=== PATIENT | male | born 1975 | race Caucasian/White ===

== ENCOUNTER 2016-08-15 21:36 | Observation (INO) | payer SELFPAY ==
[2016-08-15 22:41] LABS: Urine Bilirubin 3 mg/dl (NEGATIVE); Urine Ketone 5 mg/dL (NEGATIVE); Urine Protein 30 mg/dL (NEGATIVE); Urine Specific Gravity 1.025 SP.GR. (1.005-1.030); Urine Urobilinogen Normal (NORMAL)
[2016-08-15 22:49] LABS: Hematocrit 38.3 % (42.0-52.0); Hemoglobin 13.9 gm/dL (13.5-18.0); Mean Cell Volume 90.3 fl (78-100); Mean Corpuscular Hemoglobin 32.8 pg (27-31); Mean Corpuscular Hgb Conc 36.3 g/dl (32-36); Mean Platelet Volume 10.2 fl (6.0-9.5); Neutrophil # 3.3 K/mm3 (1.3-6.0); Neutrophil % 47.6 % (42-75.0); Platelet Count 77 K/mm3 (150-450); Red Blood Count 4.24 M/mm3 (4.7-6.0); Red Cell Distribution Width 17.7 % (11.5-14.0); White Blood Count 6.9 K/mm3 (4.0-10.5)
--- NOTE | 2016-08-15 22:49 | ERNOTE ---
Medical Problem HPI - General Chief Complaint: General Assessment Time Seen by Provider: 08/15/16 22:23 Source: patient, family Exam Limitations: no limitations - Immun/Allergies/Home Medications Allergies/Adverse Reactions: Allergies acetaminophen Adverse Reaction (Intermediate, Verified 01/22/14 14:41) Other aspirin Adverse Reaction (Verified 08/15/16 22:03) Home Medications: HOME MEDICATIONS Carvedilol [Coreg] 0.5 tab PO BID 08/15/16 [Last Taken Unknown] Escitalopram Oxalate [Lexapro] 10 mg PO DAILY 08/15/16 [Last Taken Unknown] Famotidine 20 mg PO DAILY 08/15/16 [Last Taken Unknown] Folic Acid 1 mg PO DAILY 08/15/16 [Last Taken Unknown] Furosemide [Lasix] 20 mg PO DAILY 08/15/16 [Last Taken Unknown] Lactulose [Kristalose] 20 gm PO QID 08/15/16 [Last Taken Unknown] Magnesium Oxide [Magnesium] 400 mg PO BID 08/15/16 [Last Taken Unknown] Multivitamin [One Daily Multivitamin] 1 each PO DAILY 08/15/16 [Last Taken Unknown] Omeprazole 40 mg PO DAILY 08/15/16 [Last Taken Unknown] Pantoprazole Sodium [Protonix] 40 mg PO QAM 08/15/16 [Last Taken Unknown] Potassium Chloride [Klor-Con M10] 10 meq PO HS 08/15/16 [Last Taken Unknown] Propranolol HCl 1 tab PO DAILY 08/15/16 [Last Taken Unknown] QUEtiapine FUMARATE [Seroquel Xr] 600 mg PO HS 08/15/16 [Last Taken Unknown] Rifaximin [Xifaxan] 550 mg PO BID 08/15/16 [Last Taken Unknown] Simethicone [Gas Relief] 80 mg PO PRN PRN 08/15/16 [Last Taken Unknown] Spironolactone [Aldactone] 50 mg PO DAILY 08/15/16 [Last Taken Unknown] - History of Present History Narrative: Patient is here so "you can re-diagnose me". Patient is obviously intoxicated and changes the reason for his visit multiple times. He has a history of Hep C, cirrhosis, and multiple psychiatric diagnosis including schizophrenia. About a month ago he moved here from [place] and is staying with his brother. He is taking his own medications but might be out of some of them. He states that he is taking his lactulose, having multiple loose yellow BM daily, had two beer earlier today. He also smokes THC, last a few days ago (?), denies any other drugs, complaints of a decreased appetite Review of Systems - Review of Systems Constitutional: Present: malaise. Absent: recent illness, fever ENT: Absent: sore throat Respiratory: Absent: shortness of breath, cough Cardiology: Absent: chest pain Gastrointestinal/Abdominal: Present: nausea - maybe, diarrhea - is taking lactulose. Absent: vomiting Genitourinary: Present: no symptoms reported Skin: Absent: rash Neurological: Absent: headache - Patient's Past Medical History Patient History - Medical: Alcohol Abuse, Liver Disease - hep C, cirrhosis, Other - schozophrenia Patient History - Cardiac/Respiratory: Hypertension Patient History - Cancer: No Hx of Cancer - Family History Father Family History - Medical: - Social History Living Situations: other Psych History: Hx of Schizophrenia Smoking Status: Current every day smoker Alcohol Use: other Drug Use: marijuana Physical Exam - Physical Exam General Appearance: Present: wd/wn, alert, no apparent distress, other - obviously intoxicated Eye Exam: PERRL: bilateral, Scleral icterus: bilateral Ears, Nose, Throat: Present: normal pharynx Respiratory: Present: no respiratory distress, lungs clear, decreased breath sounds Cardiovascular/Chest: Present: regular rate, rhythm, no murmur Gastrointestinal/Abdominal: Present: normal bowel sounds, nondistended, soft, tenderness - mild RUQ Neurological Exam: Present: alert, normal mood/affect, no motor/sensory deficits , other - orientented to person and place, not to situation (intoxicated) Skin Exam: Present: normal color, warm/dry ED Progress - Results and Orders Patient's Lab Results:: I have reviewed the patient's lab results. - Vital Signs Patient's Vital Signs:: I have reviewed the patient's vital signs. Vital Signs: Vital Signs 08/15/16 21:57 Temperature 36.9 C Pulse Rate 85 Respiratory 20 Rate Blood Pressure 123/79 O2 Sat by Pulse 98 Oximetry - Progress/Reassessment Chief Complaint: General Assessment Progress Note-Subjective: 08/15/16 23:37 discussed with Adilene Bhardwaj, will discuss staffing with floating [employer] supervisor 08/16/16 00:10 after discussion with pavan Solorzano to admit patient, give rocephin for UTI Departure - Departure Clinical Impression: Encephalopathy acute Cirrhosis of liver Qualifiers: Hepatic cirrhosis type: unspecified hepatic cirrhosis Ascites presence: without ascites Qualified Code(s): K74.60 - Unspecified cirrhosis of liver Liver failure Qualifiers: Liver failure chronicity: unspecified chronicity Hepatic coma status: without hepatic coma Qualified Code(s): K72.90 - Hepatic failure, unspecified without coma UTI (urinary tract infection) Qualifiers: Urinary tract infection type: acute cystitis Hematuria presence: with hematuria Qualified Code(s): N30.01 - Acute cystitis with hematuria Disposition: [facility] Condition: Fair
[2016-08-15 22:53] LABS: Cocaine Ur Negative (NEGATIVE); Urine Barbiturate Negative (NEGATIVE); Urine Benzodiazepines Negative (NEGATIVE); Urine Opiates Negative (NEGATIVE); Urine PCP Negative (NEGATIVE)
[2016-08-15 22:58] LABS: Urine THC Positive (NEGATIVE)
[2016-08-15 23:01] LABS: Urine Appearance Clear; Urine Bacteria 1+; Urine Blood 5 /ul (NEGATIVE); Urine Color Amber; Urine Nitrite Positive (NEGATIVE)
[2016-08-15 23:02] LABS: Urine Mucus Many - 3+
[2016-08-15 23:09] LABS: Albumin * 3.1 gm/dl (3.4-5.0); Anion Gap 10.7 mmol/L (6.8-13.8); BUN/Creatinine Ratio 8.6 (9.0-21.6); Bilirubin, Total 6.9 mg/dL (0.0-1.1); Ca. Corrected For Albumin 9.1 mg/dL (8.4-10.2); Calcium * 8.7 mg/dL (7.9-10.9); Carbon Dioxide 27.2 mmol/L (24-32.6); Potassium 2.9 mmol/L (3.4-4.6); Total Protein 7.2 gm/dL (6.2-8.2)
[2016-08-16] MEDS ORDERED: LORazepam 2 MG/ML DISP.SYRIN IV ONE (00:45)
[2016-08-16] MEDS ORDERED: LORazepam 2 MG/ML DISP.SYRIN IV PRN ×2 (00:46)
[2016-08-16] MEDS ORDERED: POTASSIUM CHLORIDE 40 MEQ/15 ML BTL PO ONE (01:04)
[2016-08-16] MEDS: LACTULOSE 10 G/15 ML BTL PO SCH ×5 (01:29→20:26)
[2016-08-16] MEDS: MULTIVIT INFUSN,ADULT 4,VIT K 10 ML, THIAMINE HCL 100 MG in NORMAL SALINE 1,000 ML IV SCH ×2 (01:41→10:51)
[2016-08-16] MEDS: POTASSIUM CHLORIDE 100 ML IV SCH ×3 (01:48→03:49)
[2016-08-16 01:59] LABS: Magnesium 1.9 mg/dL (1.2-2.8); Phosphorus 3.9 mg/dL (2.2-4.2)
--- NOTE | 2016-08-16 04:27 | HP ---
Chief Complaint - Chief Complaint Date of Service: 08/16/16 Time of Service: 04:27 Chief Complaint: encephalopathy, acute intoxication, cirrhosis of liver History of Present Illness: Ron is a 41 year old male patient (no pcp) with a PMH of liver failure, liver cirrhosis, HTN, etoh abuse, schizophrenia and drug abuse that presented to ER with acute intoxication. Patient is currently sedated and am unable to obtain a history from patient. No family present. History obtained from ER records. Patient recently moved back from [place] and staying with brother. Hx liver failure/liver cirrhosis - on lactulose and rifaximin outpatient but ER records indicate it is unclear if he has been taking these consistently. UDS + amphetamine and THC. etoh level 185. K+ 2.9, ammonia level 73. Urine suspicious for UTI. I spoke with ERP who during her observation denied any suicidal ideation. Patient to be admitted for encephalopathy, acute intoxication and liver failure / liver cirrhosis. - Patient's Past Medical History Patient History - Medical: Alcohol Abuse, Liver Disease - hep C, cirrhosis, liver failure, Other - schizophrenia Patient History - Cardiac/Respiratory: Hypertension Patient History - Cancer: No Hx of Cancer Patient History - Surgical Procedures: No surgical history - Family History Father Family History - Medical: , No pertinent hx Mother Family History - Medical: No pertinent hx - Social History Living Situations: other Psych History: Psychiatric Hx, Hx of Schizophrenia Smoking Status: Current every day smoker Have you smoked in the past 12 months: Yes Do you dip or chew tobacco: No Patient requests Smoking Cessation Consult: Yes Initiate information on Smoking Cessation: Yes Alcohol Use: heavy Drug Use: marijuana, meth Review Of Systems (GEN) - Review of Systems Generalized/Overall Review: Present: Fatigue - unable to obtain ROS due to patient's condition. Allergies/Adverse Reactions: Allergies Allergy/AdvReac Type Severity Reaction Status Date / Time acetaminophen AdvReac Intermediate Other Verified 01/22/14 14:41 aspirin AdvReac Verified 08/15/16 22:03 Home Medications: HOME MEDICATIONS Carvedilol [Coreg] 0.5 tab PO BID 08/15/16 [Last Taken Unknown] Escitalopram Oxalate [Lexapro] 10 mg PO DAILY 08/15/16 [Last Taken Unknown] Famotidine 20 mg PO DAILY 08/15/16 [Last Taken Unknown] Folic Acid 1 mg PO DAILY 08/15/16 [Last Taken Unknown] Furosemide [Lasix] 20 mg PO DAILY 08/15/16 [Last Taken Unknown] Lactulose [Kristalose] 20 gm PO QID 08/15/16 [Last Taken Unknown] Magnesium Oxide [Magnesium] 400 mg PO BID 08/15/16 [Last Taken Unknown] Multivitamin [One Daily Multivitamin] 1 each PO DAILY 08/15/16 [Last Taken Unknown] Omeprazole 40 mg PO DAILY 08/15/16 [Last Taken Unknown] Pantoprazole Sodium [Protonix] 40 mg PO QAM 08/15/16 [Last Taken Unknown] Potassium Chloride [Klor-Con M10] 10 meq PO HS 08/15/16 [Last Taken Unknown] Rifaximin [Xifaxan] 550 mg PO BID 08/15/16 [Last Taken Unknown] Simethicone [Gas Relief] 80 mg PO PRN PRN 08/15/16 [Last Taken Unknown] Spironolactone [Aldactone] 50 mg PO DAILY 08/15/16 [Last Taken Unknown] QUEtiapine FUMARATE [Seroquel] 200 mg PO HS 08/16/16 [Last Taken Unknown] oxyCODONE HCL [Oxycodone] 5 mg PO Q6H PRN 08/16/16 [Last Taken Unknown] Exam - Exam Vital Signs: Vital Signs - Last Taken Temp 36.5 C 08/16/16 01:02 Pulse 74 08/16/16 01:02 Resp 18 08/16/16 01:02 BP 124/77 08/16/16 01:02 Pulse Ox 94 08/16/16 01:02 Constitutional: Present: No distress, Lethargic - sedated, responds to pain and sound, Looks Older than stated age Eye Exam: bilateral eye: normal inspection, PERRL Neck: Present: supple Breasts: Present: Exam deferred Respiratory: Present: lungs clear, normal breath sounds Cardiovascular/Chest: Present: normal peripheral pulses, regular rate, rhythm Peripheral Pulses: dorsalis-pedis (R): 2+, dorsalis-pedis (L): 2+, radial (R): 2 +, radial (L): 2+ Abdomen: Present: soft, nontender, nondistended /Rectal: Present: Exam deferred Extremity: Present: normal range of motion, non-tender, no pedal edema Skin Exam: Present: normal color, warm/dry, no cyanosis Diagnostic Studies: Laboratory Results Laboratory Tests 08/15/16 22:18 WBC 6.9 Hgb 13.9 Hct 38.3 Plt Count 77 Neutrophils % 47.6 Sodium 142 Potassium 2.9 BUN 6 Creatinine 0.70 Total Bilirubin 6.9 AST 89 ALT 47 Ammonia 73.0 Urine Color Gloria Urine pH 6.0 Ur Specific [place] 1.025 Urine Blood 5 H Urine Nitrate Positive H Urine Bilirubin 3 H Urine RBC 5-10 H Urine WBC 5-10 H Ur Epithelial Cells 5-10 H Urine Bacteria 1+ H Hyaline Casts 5-10 H Urine Amphetamine Positive Urine Marijuana (THC) Positive Ethyl Alcohol 185.0 Assessment/Plan - Narrative Narrative: Encephalopathy - likely due to hepatic encephalopathy - bili 6.9, ammonia 73.0 - aggrevating factors include drug and etoh abuse. - lactulose 30 mg PO/RC QID - seizure precautions - recheck labs Acute drug / etoh intox - banana bag iv at 125 ml / hr for iv hydration - etoh withdrawl protocol entered - seizure precautions - etoh level on admission was 185 - UDS +amphedamines and THC UTI, suspected - not the best sample - has 5-10 epithelial cells - recheck UA with minicath - then start Rocephin 1 gm IV - Day #1 - await urine culture results Hypokalemia - supplement K+ - recheck labs - likely due to poor oral intake and/or etoh abuse Discharge planning issues - currently living with brother - unsure if he can return here - consult case management. Schizophrenia - this is just one of the known psychiatric illness pt has. - patient was on a high dose of seroquel I did not feel comfortable restarting, especially in light of his acute intoxication and now sedation, in addition to his liver failure. - ? psychiatric consult ? HTN - vital sign q 4 hours Code status: Full code VTE: SCDs while in bed. GI proph: protonix po - Assessment/Plan (1) Encephalopathy acute Problem: Acute (2) Acute drug intoxication Problem: Acute Qualifiers: Complication of substance-induced condition: with delirium Qualified Code(s ): F19.921 - Other psychoactive substance use, unspecified with intoxication with delirium (3) Acute alcoholic intoxication Problem: Acute Qualifiers: Complication of substance-induced condition: with delirium Qualified Code(s ): F10.921 - Alcohol use, unspecified with intoxication delirium (4) UTI (urinary tract infection) Problem: Suspected Qualifiers: Urinary tract infection type: acute cystitis Hematuria presence: with hematuria Qualified Code(s): N30.01 - Acute cystitis with hematuria (5) Hepatitis C Problem: Chronic Qualifiers: Viral hepatitis chronicity: chronic (6) Schizophrenia Problem: Chronic Qualifiers: Schizophrenia type: unspecified Qualified Code(s): F20.9 - Schizophrenia, unspecified (7) HTN (hypertension) Problem: Chronic Qualifiers: Hypertension type: essential hypertension Qualified Code(s): I10 - Essential (primary) hypertension (8) Liver failure Problem: Chronic Qualifiers: Liver failure chronicity: unspecified chronicity Hepatic coma status: without hepatic coma Qualified Code(s): K72.90 - Hepatic failure, unspecified without coma (9) Cirrhosis of liver Problem: Chronic Qualifiers: Hepatic cirrhosis type: unspecified hepatic cirrhosis Ascites presence: without ascites Qualified Code(s): K74.60 - Unspecified cirrhosis of liver (10) Tobacco abuse Problem: Chronic (11) Hypokalemia Problem: Acute (12) Discharge planning issues Problem: Acute
[2016-08-16] MEDS ORDERED: POTASSIUM CHLORIDE 100 ML IV ONE (04:45)
[2016-08-16] MEDS: PANTOPRAZOLE SODIUM 40 MG TABLET.EC PO SCH (07:04)
[2016-08-16] MEDS ORDERED: FOLIC ACID 1 MG TABLET PO SCH (09:00)
[2016-08-16] MEDS ORDERED: POTASSIUM CHLORIDE 40 MEQ/15 ML BTL PO SCH (09:15)
[2016-08-16 09:42] LABS: BUN/Creatinine Ratio 9.1 (9.0-21.6); Calcium * 7.9 mg/dL (7.9-10.9); Carbon Dioxide 23.4 mmol/L (24-32.6); Estimated Creat Clear 195.7; Potassium 3.4 mmol/L (3.4-4.6)
[2016-08-16] MEDS: FOLIC ACID 1 MG TABLET PO SCH (10:04)
[2016-08-16] MEDS: ESCITALOPRAM OXALATE 10 MG TAB PO SCH (10:04)
[2016-08-16] MEDS: MULTIVITAMINS 1 CAP CAPSULE PO SCH (10:04)
[2016-08-16] MEDS: THIAMINE HCL 100 MG TABLET PO SCH (10:04)
[2016-08-16] MEDS: MAGNESIUM OXIDE 400 MG TABLET PO SCH ×2 (10:04→20:25)
[2016-08-16 14:21] LABS: Urine Bilirubin 1 mg/dl (NEGATIVE); Urine Blood Negative /ul (NEGATIVE); Urine Ketone 5 mg/dL (NEGATIVE); Urine Nitrite Negative (NEGATIVE); Urine Protein Negative (NEGATIVE); Urine Specific Gravity 1.025 SP.GR. (1.005-1.030); Urine Urobilinogen Normal (NORMAL)
[2016-08-16 15:18] LABS: Urine Appearance Clear; Urine Bacteria None Seen; Urine Color Amber; Urine RBC 0-5 /hpf (0-5); Urine WBC None Seen /hpf (0-5)
[2016-08-16 15:19] LABS: Urine Mucus Moderate - 2+
[2016-08-16] MEDS ORDERED: POTASSIUM CHLORIDE 10 MEQ TABLET.SA PO SCH (21:00)
[2016-08-17] MEDS: LORazepam 2 MG/ML DISP.SYRIN IV PRN ×2 (00:44→23:05)
[2016-08-17] MEDS: PANTOPRAZOLE SODIUM 40 MG TABLET.EC PO SCH (07:17)
[2016-08-17] MEDS: THIAMINE HCL 100 MG TABLET PO SCH (09:01)
[2016-08-17] MEDS: MULTIVITAMINS 1 CAP CAPSULE PO SCH (09:01)
[2016-08-17] MEDS: FOLIC ACID 1 MG TABLET PO SCH (09:01)
[2016-08-17] MEDS: ESCITALOPRAM OXALATE 10 MG TAB PO SCH (09:01)
[2016-08-17] MEDS: MAGNESIUM OXIDE 400 MG TABLET PO SCH ×2 (09:01→20:33)
[2016-08-17] MEDS: LACTULOSE 10 G/15 ML BTL PO SCH ×4 (09:04→20:32)
--- NOTE | 2016-08-17 22:04 | PN ---
Subjective - Date and Time Seen Date: 08/17/16 Time: 22:04 Subjective Narrative: states he has been under a lot of stress lately. worried about discharge plans. no n/v. feels tired. Objective - Review of Systems Generalized/Overall Review: Reports: Fatigue EENTM: Reports: No Symptoms Reported Respiratory: Reports: No Symptoms Reported Cardiac: Reports: No Symptoms Reported Abdominal: Reports: No Symptoms Reported Genitourinary Symptoms: Reports: No Symptoms Reported Musculoskeletal Complaints: Reports: No Symptoms Reported Neurological: Reports: No Symptoms Reported Skin: Reports: No Symptoms Reported Endocrine: Reports: No Symptoms Reported Misc: All systems neg except as marked - Vitals Vitals: Last Vital Signs Temp 36.8 C 08/17/16 19:55 Pulse 82 08/17/16 19:55 Resp 18 08/17/16 19:55 BP 138/68 08/17/16 19:55 Pulse Ox 96 08/17/16 19:55 - Exam Constitutional: Present: Alert, Cooperative, No distress ENT Exam: Present: hearing grossly normal Neck: Present: full range of motion, supple Respiratory: Present: lungs clear, normal breath sounds Cardiovascular/Chest: Present: normal peripheral pulses, regular rate, rhythm, no JVD Abdomen: Present: soft, nontender, nondistended /Rectal: Present: Exam deferred Extremity: Present: no pedal edema, no calf tenderness Skin Exam: Present: normal color, warm/dry, no cyanosis Neurologic: Present: manager scientific II-XII nml as tested, alert, oriented x 3 Assessment/Plan Plan Narrative: Encephalopathy - likely due to hepatic encephalopathy - bili 6.9, ammonia 73.0 on admit - recheck labs in am. - aggrevating factors include drug and etoh abuse. - lactulose 30 mg PO/RC QID - seizure precautions Acute drug / etoh intox - etoh withdrawl protocol entered - seizure precautions - etoh level on admission was 185 - UDS +amphedamines and THC on admission - appears to have "sobered up" UTI, ruled out - recheck sample not c/w infection Hypokalemia - improved - recheck labs - likely due to poor oral intake and/or etoh abuse Discharge planning issues - currently living with brother - unsure if he can return here - consult case management. HTN - vital sign q 4 hours Code status: Full code VTE: SCDs while in bed. GI proph: protonix po - Problems/Diagnosis (1) Encephalopathy acute Problem: Acute (2) Acute drug intoxication Problem: Acute Qualifiers: Complication of substance-induced condition: with delirium Qualified Code(s ): F19.921 - Other psychoactive substance use, unspecified with intoxication with delirium (3) Acute alcoholic intoxication Problem: Acute Qualifiers: Complication of substance-induced condition: with delirium Qualified Code(s ): F10.921 - Alcohol use, unspecified with intoxication delirium (4) UTI (urinary tract infection) Problem: Suspected Qualifiers: Urinary tract infection type: acute cystitis Hematuria presence: with hematuria Qualified Code(s): N30.01 - Acute cystitis with hematuria (5) Hepatitis C Problem: Chronic Qualifiers: Viral hepatitis chronicity: chronic (6) Schizophrenia Problem: Chronic Qualifiers: Schizophrenia type: unspecified Qualified Code(s): F20.9 - Schizophrenia, unspecified (7) HTN (hypertension) Problem: Chronic Qualifiers: Hypertension type: essential hypertension Qualified Code(s): I10 - Essential (primary) hypertension (8) Liver failure Problem: Chronic Qualifiers: Liver failure chronicity: unspecified chronicity Hepatic coma status: without hepatic coma Qualified Code(s): K72.90 - Hepatic failure, unspecified without coma (9) Cirrhosis of liver Problem: Chronic Qualifiers: Hepatic cirrhosis type: unspecified hepatic cirrhosis Ascites presence: without ascites Qualified Code(s): K74.60 - Unspecified cirrhosis of liver (10) Tobacco abuse Problem: Chronic (11) Hypokalemia Problem: Acute (12) Discharge planning issues Problem: Acute
[2016-08-18] MEDS: PANTOPRAZOLE SODIUM 40 MG TABLET.EC PO SCH (07:34)
[2016-08-18] MEDS: MULTIVITAMINS 1 CAP CAPSULE PO SCH (08:50)
[2016-08-18] MEDS: MAGNESIUM OXIDE 400 MG TABLET PO SCH (08:50)
[2016-08-18] MEDS: THIAMINE HCL 100 MG TABLET PO SCH (08:50)
[2016-08-18] MEDS: ESCITALOPRAM OXALATE 10 MG TAB PO SCH (08:50)
[2016-08-18] MEDS: FOLIC ACID 1 MG TABLET PO SCH (08:50)
[2016-08-18] MEDS: LACTULOSE 10 G/15 ML BTL PO SCH ×2 (08:51→13:28)
--- NOTE | 2016-08-18 11:28 | DS ---
(1) Substance abuse Diagnosis(s): EtOH level 0.185, tobacco abuse, UDS positive for THC and amphetamines. Problem: Acute (2) Cirrhosis of liver Diagnosis(s): due to hepatitis C. Problem: Chronic Qualifiers: Hepatic cirrhosis type: unspecified hepatic cirrhosis Ascites presence: without ascites Qualified Code(s): K74.60 - Unspecified cirrhosis of liver (3) Schizophrenia Problem: Chronic Qualifiers: Schizophrenia type: unspecified Qualified Code(s): F20.9 - Schizophrenia, unspecified (4) Anxiety and depression Diagnosis(s): On escitalopram 10 mg daily. Problem: Chronic (5) HTN (hypertension) Problem: Chronic Qualifiers: Hypertension type: essential hypertension Qualified Code(s): I10 - Essential (primary) hypertension Description of Stay: DATE OF ADMISSION: 08/16/2016. DATE OF DISCHARGE: 08/18/2016. DIAGNOSTICS: NONE. DISCHARGE SUMMARY: Ron Daly is a 41-year-old WM with a H/O cirrhosis of liver due to hep C, schizophrenia, substance abuse[ EtOH, tobacco] who was seen in the ER for acute EtOH intoxication. Level was 0.185 and UDS positive for THC and methamphetamine. K+ 2.9, AST 89, T Delgado 6.9 ammonia 73. The patient was restarted on lactulose and prior medications Patient has been not taking his previous medications for the last few weeks. He recently moved from [place] to stay with his brother. He became more alert. Patient was advised to establish with a [facility][ liver clinic] and continue his medications especially rifaximin, lactulose , escitalopram and carvedilol. He was discharged in a stable condition. Advised to avoid NSAIDs EtOH etc. Procedures Performed: none Discharge Disposition: Home self care Disposition: Home self-care Condition: Undetermined Discharge Activity: Activity as tolerated Discharge Diet: Low salt, Low fat/chol, High Fiber Problem Oriented Discharge Instructions to Patient/Family: Liver Failure, Drug Overdose Additional Patient Instructions (free text): Patient needs to establish with a physician. Follow up with Dr. Smith 1-2 weeks [facility] will call you on Saturday with appt. Needs a appt with [facility] with liver clinic. MVT, folic acid 0.4 mg [ 2 tablets] , magnesium oxide 400 mg PO twice a day, Thiamine 100 mg daily , Simethicone 80 mg 4 times a day after meals [ are OTC medications] and are a lot cheaper if bought in a bottle of 100. Please AVOID ETOH, NSAIDS, recreational drugs, ASPIRIN as they can increase liver damage. Prescriptions (Any new or edited meds): Furosemide [Lasix] 20 mg PO DAILY@1200 #30 tablet Spironolactone [Aldactone] 50 mg PO DAILY@1200 #30 tablet Complete Home Medications List: Complete Home Medication List: Carvedilol [Coreg] 0.5 tab PO BID 08/15/16 Escitalopram Oxalate [Lexapro] 10 mg PO DAILY 08/15/16 Folic Acid 1 mg PO DAILY 08/15/16 Lactulose [Kristalose] 20 gm PO QID 08/15/16 Magnesium Oxide [Magnesium] 400 mg PO BID 08/15/16 Multivitamin [One Daily Multivitamin] 1 each PO DAILY 08/15/16 Omeprazole 40 mg PO DAILY 08/15/16 Rifaximin [Xifaxan] 550 mg PO BID 08/15/16 Simethicone [Gas Relief] 80 mg PO PRN PRN 08/15/16 QUEtiapine FUMARATE [Seroquel] 200 mg PO HS 08/16/16 oxyCODONE HCL [Oxycodone] 5 mg PO Q6H PRN 08/16/16 Furosemide [Lasix] 20 mg PO DAILY@1200 #30 tablet 08/18/16 Multivitamins [Multivitamin Lamin] 1 cap PO DAILY capsule 08/18/16 Spironolactone [Aldactone] 50 mg PO DAILY@1200 #30 tablet 08/18/16 Thiamine HCl [Vitamin B-1] 100 mg PO DAILY tablet 08/18/16
[2016-08-18 14:21] VITALS: BP 134/76
== END 2016-08-18 16:33 | disposition home or self-care (01) ==
LOC: ER 21:36 → MS 23:52 → UNDOADMIN 23:52 → INTOOBSV 08-16 00:01 → MS 08-16 00:01
PROVIDERS: ADMIT Nurse Practitioner Critical Care Medicine; ATTEND Internal Medicine
DX: K71.7 Toxic liver disease with fibrosis and cirrhosis of liver (principal); B18.2 Chronic viral hepatitis C; I10 Essential (primary) hypertension; F10.129 Alcohol abuse with intoxication, unspecified; F15.10 Other stimulant abuse, uncomplicated; F20.9 Schizophrenia, unspecified; F41.8 Other specified anxiety disorders; E87.6 Hypokalemia; F17.200 Nicotine dependence, unspecified, uncomplicated
CPT/HCPCS: 36415; 80048; 80053; 80307; 81001; 82140; 83690; 83735; 84100; 85025; 87040; 87086; 96365; 96366; 96367; 96375; 96376; 99283; G0378; G0481